=== PATIENT | male | born 1990 | race Two or more races ===

== ENCOUNTER 2016-12-17 | Emergency (ER) | payer MEDICAID | END 2016-12-17 12:49 | disposition home or self-care (01) ==

== ENCOUNTER 2017-04-16 16:57 | Emergency (ER) | payer MEDICAID ==
[2017-04-16 17:23] VITALS: BP 136/75
--- NOTE | 2017-04-16 17:30 | ED Physician Documentation ---
PD HPI LOWER EXT INJURY - Stated complaint Stated Complaint: R FOOT INJ - Chief complaint Chief Complaint: Ext Problem - History obtained from History obtained from: Patient - History of Present Illness PD HPI LOW EXT INJURY LOCATION: Right, Foot (heel) Type of injury: Fall (was going up ladder that kicked out and he fell several feet, landing directly onto right heel, with pain at bottom of heel. No pain at knee, hip nor back.) Where injury occurred: Home Timing - onset: Today Timing - details: Abrupt onset, Still present Worsened by: Palpating, Other (standing/putting weight) Associated symptoms: Swelling (some on bottom of heel). No: Weakness, Numbness Similar symptoms before: Has not had sx before Recently seen: Not recently seen Review of Systems Skin: denies: Abrasion (s), Laceration (s) Musculoskeletal: denies: Neck pain, Back pain Neurologic: denies: Focal weakness, Numbness PD PAST MEDICAL HISTORY - Past Medical History Musculoskeletal: None - Past Surgical History Past Surgical History: No - Present Medications Home Medications: Ambulatory Orders Medication Instructions Recorded Confirmed No Known Home Medications [No 04/16/17 04/16/17 Known Home Medications] - Allergies Allergies/Adverse Reactions: Allergies Allergy/AdvReac Type Severity Reaction Status Date / Time acetaminophen [From Percocet] AdvReac Nausea Verified 04/16/17 17:10 oxycodone HCl * AdvReac Nausea Verified 04/16/17 17:10 [From Percocet] - Social History Does the pt smoke?: No Smoking Status: Never smoker Does the pt drink ETOH?: Yes Does the pt have substance abuse?: No - Immunizations Immunizations are current?: Yes - POLST Patient has POLST: No PD ED PE NORMAL - Vitals Vital signs reviewed: Yes - General General: Alert and oriented X 3, Well developed/nourished - Back Back: No spinal TTP - Derm Derm: Normal color, Warm and dry - Extremities Extremities: Other (right ankle not tender. Heel with tenderness plantar aspect. Toes and MTP area not tender. Good sensation, color and cap refill in toes. ) Results - Vitals Vitals: Vital Signs - 24 hr 04/16/17 17:07 Temperature 37.0 C Heart Rate 87 Respiratory 16 Rate Blood Pressure 136/75 H O2 Saturation 99 Oxygen O2 Source Room air - Rads (name of study) foot and ankle Radiology: Prelim report reviewed (no fractures), EMP read contemporaneously ( no fracture and Bohler's angle appears normal. ) PD MEDICAL DECISION MAKING - ED course Complexity details: reviewed results, considered differential, d/w patient Departure - Departure Disposition: 01 Home, Self Care Clinical Impression: Contusion of right heel Qualifiers: Encounter type: initial encounter Qualified Code(s): S90.31XA - Contusion of right foot, initial encounter Condition: Stable Record reviewed to determine appropriate education?: Yes Instructions: ED Contusion Foot Follow-Up: Guillaume Garcia MD [Provider Admit Priv/Credential] - Comments: Thomas wrap, elevate, ice for swelling. Crutches to be off it until feeling better and progress weight bearing as able. Ibuprofen 3 times daily. Add Tylenol or hydrocodone as needed. Recheck if not better over the next week. Discharge Date/Time: 04/16/17 18:39
[2017-04-16] MEDS ORDERED: IBUPROFEN 600 MG TABLET PO STA (17:54)
[2017-04-16] MEDS ORDERED: traMADol 50 MG TABLET PO STA (17:55)
[2017-04-16] MEDS ORDERED: traMADol 50 MG TABLET PO ONE (18:02)
[2017-04-16] MEDS ORDERED: IBUPROFEN 600 MG TABLET PO ONE (18:02)
--- NOTE | 2017-04-16 18:04 | XRAY Preliminary Report ---
Exam: XR Ankle 3 View RT IMPRESSION: Normal ankle radiography. [facility] SITE ID: [id number]
--- NOTE | 2017-04-16 18:05 | XRAY Preliminary Report ---
Exam: XR Foot 3 View RT IMPRESSION: Normal foot radiography. [facility] SITE ID: [id number]
--- NOTE | 2017-04-16 18:06 | XRAY Report ---
EXAM: RIGHT ANKLE RADIOGRAPHY EXAM DATE: 04/16/2017 05:44 PM. CLINICAL HISTORY: Fall 10 from ladder. COMPARISON: None. TECHNIQUE: 3 views. FINDINGS: Bones: Normal. No fractures or bone lesions. Joints: Normal. No effusion. No subluxations. The ankle mortise is normally aligned. Soft Tissues: Normal. No soft tissue swelling. IMPRESSION: Normal ankle radiography. [facility] Referring Provider Line: [phone] SITE ID: [id number]
--- NOTE | 2017-04-16 18:07 | XRAY Report ---
EXAM: RIGHT FOOT RADIOGRAPHY EXAM DATE: 04/16/2017 05:44 PM. CLINICAL HISTORY: Fall 10 from ladder. COMPARISON: None. TECHNIQUE: 3 views. FINDINGS: Bones: Normal. No fractures or bone lesions. Joints: Normal. No subluxations. Soft Tissues: Normal. No soft tissue swelling. IMPRESSION: Normal foot radiography. [facility] Referring Provider Line: [phone] SITE ID: [id number]
[2017-04-16] MEDS ORDERED: HYDROcod/ACET 5/325 Prepack 6 PO ONE ×2 (18:19→18:34)
== END 2017-04-16 18:39 | disposition home or self-care (01) ==
LOC: ED 16:57
DX: S90.31XA Contusion of right foot, initial encounter (principal); W11.XXXA Fall on and from ladder, initial encounter; Y92.009 Unspecified place in unspecified non-institutional (private) residence as the place of occurrence of the external cause
CPT/HCPCS: 73610; 73630; 99283; A9270

== ENCOUNTER 2017-04-21 09:18 | Outpatient (CLI) | payer MEDICAID | END 2017-04-21 09:19 | disposition EMS.NT | LOC: EMS 09:18 | PROVIDERS: ATTEND Surgery | DX: R07.9 Chest pain, unspecified (principal) ==

== ENCOUNTER 2017-04-21 10:29 | Emergency (ER) | payer MEDICAID ==
--- NOTE | 2017-04-21 10:56 | ED Physician Documentation ---
History of Present Illness - Stated complaint Stated Complaint: CHEST PAIN,PRESSURE - Chief complaint Chief Complaint: Cardiac - Additonal information Additional information: hx from pt 26 y/o male left sided CP today some cough no fever worse laying down better sitting up no abd pain no leg pain or swelling - recent fall and foot injury but no fx and no splint or boot no recent travel or sick contacts Review of Systems Constitutional: denies: Fever Cardiac: reports: Chest pain / pressure Respiratory: reports: Cough GI: denies: Abdominal Pain Musculoskeletal: denies: Extremity pain, Extremity swelling Endocrine: denies: Easy bruising / bleeding Immunocompromised: denies: Immunocompromised PD PAST MEDICAL HISTORY - Past Medical History Musculoskeletal: None - Past Surgical History Past Surgical History: No - Present Medications Home Medications: Ambulatory Orders Medication Instructions Recorded Confirmed Indomethacin [Indocin] 25 mg PO TIDWM PRN #20 capsule 04/21/17 - Allergies Allergies/Adverse Reactions: Allergies Allergy/AdvReac Type Severity Reaction Status Date / Time acetaminophen [From Percocet] AdvReac Nausea Verified 04/16/17 17:10 oxycodone HCl * AdvReac Nausea Verified 04/16/17 17:10 [From Percocet] - Social History Does the pt smoke?: Yes Smoking Status: Light tobacco smoker Does the pt drink ETOH?: Yes Does the pt have substance abuse?: No - Immunizations Immunizations are current?: Yes - POLST Patient has POLST: No PD ED PE NORMAL - Vitals Vital signs reviewed: Yes - Neck Neck: Supple, no meningeal sign - Cardiac Cardiac: RRR - Respiratory Respiratory: No respiratory distress, Other (slightly dec L base) - Abdomen Abdomen: Soft, Non tender Results - Vitals Vitals: Vital Signs - 24 hr 04/21/17 04/21/17 10:35 11:42 Heart Rate 69 59 L Respiratory 17 16 Rate Blood Pressure 118/80 111/83 H O2 Saturation 97 98 Oxygen O2 Source Room air - EKG (time done) 1036 Rate: Rate (enter#) (58) Rhythm: NSR [place]: Normal Intervals: Normal [place] QRS: Normal Ischemia: ST elevation c/w repol - Rads (name of study) CXR Radiology: See rad report (neg, tight narrow mediastinum, no cap or effusion) PD MEDICAL DECISION MAKING - ED course ED course: neg EKG neg CXR neg PERC pain seems pleuritic with a cough, or could be pericarditis since better leaning forward (but no apparent effusion on ECX and no EKG changes) will reassure and dc on NSAID Departure - Departure Disposition: 01 Home, Self Care Clinical Impression: Pleurisy Condition: Good Instructions: ED Chest Pain Atypical Unkn Cause, ED Chest Pain Pleurisy, ED Chest Pain Pericarditis Prescriptions: Indomethacin [Indocin] 25 mg PO TIDWM PRN #20 capsule PRN Reason: Pain Comments: Your EKG and chest xray were fine. Based on your exam, xray and EKG it does not seem you are having a heart attack , a blood clot in your lung, an aneurysm or tear of your aorta, or a collapsed lung Since you have had a but of a cough the pain could be due to inflammation of the lining of your lungs called pleurisy And since you feel better sitting up, the pain could be due to inflammation of the lining of your heart called pericarditis Either one if these will get better on its own and I have prescribed an anit- inflammatory called indocin to help decrease the pain Please follow up with your PDM for a recheck Monday And return to the ER if your symptoms change or worsen over the weekend Forms: Activity restrictions
--- NOTE | 2017-04-21 11:45 | XRAY Preliminary Report ---
Exam: XR Chest 2 View PA/LAT IMPRESSION: Normal 2-view chest radiography. [facility] SITE ID: [id number]
--- NOTE | 2017-04-21 11:46 | XRAY Report ---
EXAM: CHEST RADIOGRAPHY EXAM DATE: 04/21/2017 10:56 AM. CLINICAL HISTORY: Left chest pain for 4 days, worse today. COMPARISON: None. TECHNIQUE: 2 views. FINDINGS: Lungs/Pleura: No focal opacities evident. No pleural effusion. No pneumothorax. Normal volumes. Mediastinum: Heart and mediastinal contours are unremarkable. Other: None. IMPRESSION: Normal 2-view chest radiography. [facility] Referring Provider Line: [phone] SITE ID: [id number]
[2017-04-21 12:48] VITALS: BP 110/53
== END 2017-04-21 12:48 | disposition home or self-care (01) ==
LOC: ED 10:29
DX: R09.1 Pleurisy (principal); F17.200 Nicotine dependence, unspecified, uncomplicated
CPT/HCPCS: 71020; 93005; 93010; 99283; 99284

== ENCOUNTER 2017-10-18 17:04 | Emergency (ER) | payer MEDICAID ==
--- NOTE | 2017-10-18 18:08 | XRAY Preliminary Report ---
Exam: XR CHEST 2 VIEW PA/LAT IMPRESSION: Normal 2-view chest radiography. [facility] SITE ID: [id number]
--- NOTE | 2017-10-18 18:27 | XRAY Report ---
EXAM: CHEST RADIOGRAPHY EXAM DATE: 10/18/2017 05:36 PM. CLINICAL HISTORY: Chest pain. Fall 3 days ago. COMPARISON: 04/21/2017. TECHNIQUE: 2 views. FINDINGS: Lungs/Pleura: No focal opacities evident. No pleural effusion. No pneumothorax. Normal volumes. Mediastinum: Heart and mediastinal contours are unremarkable. Other: None. IMPRESSION: Normal 2-view chest radiography. [facility] Referring Provider Line: [phone] SITE ID: [id number]
--- NOTE | 2017-10-18 18:53 | ED Physician Documentation ---
History of Present Illness - Stated complaint Stated Complaint: CHEST PX - Chief complaint Chief Complaint: General - History obtained from History obtained from: Patient (pt is here with right sided chest pain. states that he fell while skateboarding on monday and hurt his right shoulder. he states that since then he has had right sided chest pain. No problems breathing but does have pain with deep inspiration. no fevers, currently does not have right shoulder pain.) Review of Systems Constitutional: denies: Fever, Chills Eyes: denies: Loss of vision Throat: denies: Dental pain / toothache, Sore throat Cardiac: reports: Chest pain / pressure. denies: Palpitations, Pedal edema Respiratory: denies: Dyspnea, Cough, Hemoptysis, Wheezing GI: denies: Abdominal Pain, Nausea, Vomiting, Constipation, Diarrhea : denies: Dysuria Skin: denies: Rash, Lesions, Laceration (s) Musculoskeletal: denies: Neck pain, Back pain, Extremity pain, Joint pain, Extremity swelling, Joint swelling Neurologic: denies: Headache, Head injury, LOC PD PAST MEDICAL HISTORY - Past Medical History Musculoskeletal: None - Past Surgical History Past Surgical History: No - Present Medications Home Medications: Ambulatory Orders Medication Instructions Recorded Confirmed HYDROcod/ACETAM 5/325 [Heth 5/325] 1 each PO Q6H #10 tablet 10/18/17 - Allergies Allergies/Adverse Reactions: Allergies Allergy/AdvReac Type Severity Reaction Status Date / Time No Known Drug Allergies Allergy Verified 10/18/17 17:17 - Social History Does the pt smoke?: Yes Smoking Status: Current every day smoker Does the pt drink ETOH?: Yes Does the pt have substance abuse?: No - Immunizations Immunizations are current?: Yes - POLST Patient has POLST: No PD ED PE NORMAL - Vitals Vital signs reviewed: Yes - General General: Alert and oriented X 3, Well developed/nourished - HEENT HEENT: Atraumatic, PERRL - Neck Neck: Supple, no meningeal sign, No bony TTP - Cardiac Cardiac: RRR, No murmur, No gallop, Other (+ TTP anterior right sided chest wall , ) - Respiratory Respiratory: No respiratory distress, Clear bilaterally - Abdomen Abdomen: Soft - Back Back: No spinal TTP - Derm Derm: Normal color, Warm and dry, No rash - Extremities Extremities: No deformity, No tenderness to palpate, Normal ROM s pain (right shoulder), Other - Neuro Neuro: Alert and oriented X 3, Normal speech Eye Opening: Spontaneous Motor: Obeys Commands Verbal: Oriented GCS Score: 15 - Psych Psych: Normal mood, Normal affect Results - Vitals Vitals: Vital Signs - 24 hr 10/18/17 17:11 Temperature 36.7 C Heart Rate 62 Respiratory 16 Rate Blood Pressure 121/88 H O2 Saturation 100 Oxygen O2 Source Room air - EKG (time done) 1713 Rate: Rate (enter#) Rhythm: NSR [place]: Normal Intervals: QRS normal QRS: Normal Ischemia: Normal ST segments - Rads (name of study) CXR Radiology: Final report received PD MEDICAL DECISION MAKING - ED course Complexity details: d/w patient ED course: pt with right sided chest wall pain, CXR and ECG unremarkable. has no shoulder pain. has pinpoint pain anterior chest wall which may be a fractured rib that is not seen on the CXR. discussed this with the pt. we discussed return precautions he expressed understanding. Departure - Departure Disposition: 01 Home, Self Care Clinical Impression: Chest wall pain Condition: Good Instructions: ED Contusion Chest Wall Follow-Up: primary, care provider [Other] Prescriptions: HYDROcod/ACETAM 5/325 [Heth 5/325] 1 each PO Q6H #10 tablet Comments: Follow up with your primary care provider. Return to the ER for any new or worsening symptoms.
[2017-10-18 19:05] VITALS: BP 124/74
== END 2017-10-18 19:04 | disposition home or self-care (01) ==
LOC: ED 17:04
DX: R07.89 Other chest pain (principal); F17.200 Nicotine dependence, unspecified, uncomplicated
CPT/HCPCS: 71020; 93005; 99283

== ENCOUNTER 2018-05-27 14:29 | Emergency (ER) | payer MEDICAID ==
[2018-05-27] MEDS ORDERED: LIDOCAINE VISCOUS 2% 15 ML UDC MM STA ×2 (16:33→18:06)
[2018-05-27] MEDS ORDERED: SODIUM CHLORIDE 0.9% 1,000 ML IV ONE (16:33)
--- NOTE | 2018-05-27 16:37 | ED Physician Documentation ---
PD HPI HEENT FB - Chief complaint Chief Complaint: Heent - History obtained from History obtained from: Patient, Family - History of Present Illness Timing - onset: Other (The last 2 days he has had increasing pain that started on the tongue and they noticed a coating on the tongue and it is since moved to the top of the mouth and the bottom of the mouth. He is having a lot of difficulty swallowing or taking any oral intake. Started having fevers and vomiting today. Prior to that he notes no night sweats but he has had a 15 pound weight loss over the last 6 months or so that was unintentional.) Review of Systems Ten Systems: 10 systems reviewed and negative Constitutional: reports: Fever, Chills, Fatigue Nose: denies: Rhinorrhea / runny nose, Congestion Throat: reports: Sore throat Respiratory: denies: Dyspnea GI: reports: Nausea, Vomiting. denies: Abdominal Pain, Diarrhea PD PAST MEDICAL HISTORY - Past Medical History Musculoskeletal: None - Past Surgical History Past Surgical History: No - Present Medications Home Medications: Ambulatory Orders Medication Instructions Recorded Confirmed No Known Home Medications [No 05/27/18 05/27/18 Known Home Medications] - Allergies Allergies/Adverse Reactions: Allergies Allergy/AdvReac Type Severity Reaction Status Date / Time No Known Drug Allergies Allergy Verified 10/18/17 17:17 - Social History Does the pt smoke?: Yes Smoking Status: Current every day smoker Does the pt drink ETOH?: Yes Does the pt have substance abuse?: No - Immunizations Immunizations are current?: Yes - POLST Patient has POLST: No PD ED PE NORMAL - Vitals Vital signs reviewed: Yes - General General: Alert and oriented X 3, No acute distress - HEENT HEENT: PERRL, EOMI, Other (He has a thick white coating on the tongue with spots on the soft palate and buccal mucosa most consistent with thrush. He has no cervical adenopathy or other adenopathy. The neck is supple. The posterior oropharynx looks okay.) - Neck Neck: Supple, no meningeal sign, No bony TTP - Cardiac Cardiac: RRR, No murmur - Respiratory Respiratory: Other (Diminished at both bases, left worse than right) - Abdomen Abdomen: Soft, Non tender - Derm Derm: No rash - Neuro Neuro: Alert and oriented X 3, Normal speech - Psych Psych: Normal mood, Normal affect Results - Vitals Vitals: Vital Signs - 24 hr 05/27/18 15:09 Temperature 38.0 C H Heart Rate 103 H Respiratory 20 Rate Blood Pressure 132/86 H O2 Saturation 99 Oxygen O2 Source Room air - Labs Labs: Microbiology 05/27/18 16:30 TYRELL Preparation - Final Other - Other Laboratory Tests 05/27/18 05/27/18 16:42 16:42 WBC 8.3 RBC 4.41 L Hgb 14.1 Hct 40.4 L MCV 91.6 MCH 31.9 H MCHC 34.8 RDW 12.6 Plt Count 229 MPV 7.4 Neut # (Auto) 6.2 Lymph # (Auto) 1.1 L Bryan # (Auto) 1.0 Eos # (Auto) 0.0 Baso # (Auto) 0.0 Absolute Nucleated RBC 0.00 Nucleated RBC % 0.0 Sodium 134 L Potassium 3.6 Chloride 98 L Carbon Dioxide 25 Anion Gap 11.0 BUN 13 Creatinine 0.8 Estimated GFR (MDRD) 117 Glucose 98 Calcium 9.2 Total Bilirubin 0.7 AST 21 ALT 15 Alkaline Phosphatase 44 Total Protein 7.8 Albumin 4.1 Globulin 3.7 Albumin/Globulin Ratio 1.1 Lipase 27 - Rads (name of study) 2v chest Radiology: EMP read contemporaneously (normal) PD MEDICAL DECISION MAKING - ED course ED course: 27-year-old gentleman presents with acute mouth pain with the severe lesions inside of his mouth, he had a lot of relief with lidocaine and IV fluids. I did a wet mount/TYRELL and no yeast were seen so it does not seem like thrush, primary herpetic gingivostomatitis is more likely at this juncture. Given the severity of it and his recent weight loss he also was tested for HIV and basic blood work was done. I will call him of his HIV or herpes tests are positive at [phone] which is the number he gave me. - Sepsis Event Vital Signs: Vital Signs - 24 hr 05/27/18 15:09 Temperature 38.0 C H Heart Rate 103 H Respiratory 20 Rate Blood Pressure 132/86 H O2 Saturation 99 Oxygen O2 Source Room air Departure - Departure Disposition: 01 Home, Self Care Clinical Impression: Gingivostomatitis, Dehydration Condition: Good Record reviewed to determine appropriate education?: Yes Instructions: ED Dehydration Comments: Help with your doctor in 3 days if not better, return if worse. He was given a prescription for "magic mouthwash, 1-1-1 viscous lidocaine, Maalox, and nystatin suspension 5 mL p.o. swish and spit 4 times a day as needed for mouth pain.
[2018-05-27 16:49] LABS: BASOPHILS % (AUTO) 0.5 %; EOSINOPHILS % (AUTO) 0.6 %; HGB - HEMOGLOBIN 14.1 g/dL (14.0-18.0); LYMPHOCYTES # (AUTO) 1.1 10^3/uL (1.5-3.5); MEAN CORPUSCULAR HEMOGLOBIN 31.9 pg (27.0-31.0); MEAN CORPUSCULAR HGB CONC 34.8 g/dL (32.0-36.0); MEAN CORPUSCULAR VOLUME 91.6 fL (80.0-94.0); MEAN PLATELET VOLUME 7.4 fL (7.4-11.4); MONOCYTES % (AUTO) 11.7 %; NEUTROPHILS # (AUTO) 6.2 10^3/uL (1.5-6.6); NEUTROPHILS % (AUTO) 74.2 %; PLT - PLATELET COUNT 229 10^3/uL (130-450); RED BLOOD COUNT 4.41 10^6/uL (4.70-6.10); RED CELL DISTRIBUTION WIDTH 12.6 % (12.0-15.0); WHITE BLOOD COUNT 8.3 x10^3/uL (4.8-10.8)
[2018-05-27 17:00] LABS: ALBUMIN 4.1 g/dL (3.2-5.5); ALBUMIN/GLOBULIN RATIO 1.1 (1.0-2.2); BILIRUBIN,TOTAL 0.7 mg/dL (0.2-1.0); CALCIUM 9.2 mg/dL (8.5-10.3); CREATININE 0.8 mg/dL (0.6-1.2); TOTAL PROTEIN 7.8 g/dL (6.7-8.2)
--- NOTE | 2018-05-27 17:14 | XRAY Report ---
Procedure Date: 05/27/2018 Accession Number: [id number] / [id number] Procedure: XR - Chest 2 View X-Ray CPT Code: 38829 FULL RESULT: EXAM: CHEST RADIOGRAPHY EXAM DATE: 05/27/2018 04:50 PM. CLINICAL HISTORY: Weight loss. COMPARISON: 10/18/2017. TECHNIQUE: 2 views. FINDINGS: Lungs/Pleura: No focal opacities evident. No pleural effusion. No pneumothorax. Normal volumes. Mediastinum: Heart and mediastinal contours are unremarkable. Other: None. IMPRESSION: Normal 2-view chest radiography. [facility]
[2018-05-27] MEDS ORDERED: HYDROcod/ACET 5/325 Prepack 4 PO STA (17:32)
[2018-05-27 17:41] VITALS: BP 121/80
== END 2018-05-27 18:09 | disposition home or self-care (01) ==
LOC: ED 14:29
DX: K05.10 Chronic gingivitis, plaque induced (principal); E86.0 Dehydration; F17.200 Nicotine dependence, unspecified, uncomplicated
CPT/HCPCS: 36415; 71046; 80053; 83690; 85025; 87210; 87220; 87389; 87529; 96360; 99283

== ENCOUNTER 2019-11-29 10:33 | Outpatient (CLI) | payer MEDICAID | END 2019-11-29 10:34 | disposition EMS.NT | LOC: EMS 10:33 | PROVIDERS: ATTEND Surgery | DX: Z04.1 Encounter for examination and observation following transport accident (principal) ==

== ENCOUNTER 2021-02-21 22:09 | Emergency (ER) | payer MEDICAID ==
[2021-02-21] MEDS ORDERED: diphenhydrAMINE INJ 50 MG/ML VIAL IVP STA (22:42)
[2021-02-21] MEDS ORDERED: SODIUM CHLORIDE 0.9% 1,000 ML IV STA (22:42)
[2021-02-21] MEDS ORDERED: KETOROLAC 30 MG/ML VIAL IVP STA (22:42)
[2021-02-21] MEDS ORDERED: PROCHLORPERAZINE 10 MG/2 ML VIAL IVP STA (22:43)
[2021-02-21] MEDS ORDERED: DEXAMETHASONE 10 MG/ML VIAL IVP STA (22:43)
--- NOTE | 2021-02-21 22:45 | ED Physician Documentation ---
PD HPI HEADACHE - Stated complaint Stated Complaint: MIGRANE - Chief complaint Chief Complaint: Neuro - History obtained from History obtained from: Patient - History of Present Illness Timing - onset: How many days ago (3) Timing - onset during: Rest Timing - duration: Days (3) Timing - details: Gradual onset, Still present Location: Front, Right Quality: Throbbing Associated symptoms: Other (fatigue). No: Fever, Stiff neck, Nausea, Vomiting, Weakness, Numbness, Syncope, Seizure, Eye pain, Vision changes Improved by: Rest Contributing factors: No: Anticoagulated Similar symptoms before: No diagnosis (has headaches usually better with aleve) Recently seen: Not recently seen - Additional information Additional information: 30-year-old male who is been on Suboxone for about 6 months has now developed a headache with fatigue. He states that when he for started the Suboxone he did get headaches periodically and he has not had headaches for some time. He states that he usually has improvement in his headaches with the use of Aleve or ibuprofen. He has not had relief with this. He denies any cough or fever denies any ear pain or muffled hearing. He states the pain is on the right side of his head with some throbbing. He has not had nausea or vomiting. Review of Systems Constitutional: reports: Fatigue. denies: Fever, Chills, Myalgias Eyes: denies: Decreased vision Ears: denies: Loss of hearing, Ear pain Nose: denies: Rhinorrhea / runny nose, Congestion Throat: denies: Sore throat Cardiac: denies: Chest pain / pressure, Palpitations Respiratory: denies: Dyspnea, Cough GI: denies: Abdominal Pain, Nausea, Vomiting, Constipation, Diarrhea : denies: Dysuria, Frequency Skin: denies: Rash Musculoskeletal: denies: Neck pain, Back pain, Extremity pain Neurologic: reports: Headache. denies: Generalized weakness, Focal weakness, Numbness, Difficulty speaking, Syncope, Seizure, Confused, Altered mental status, Head injury, LOC PD PAST MEDICAL HISTORY - Past Medical History Past Medical History: No Musculoskeletal: None - Past Surgical History Past Surgical History: No - Present Medications Home Medications: Ambulatory Orders Medication Instructions Recorded Confirmed Amox/Clav 875/125 [Augmentin] 1 each PO Q12H #20 tablet 02/21/21 Buprenorphine HCl/Naloxone HCl 1 each SL BID 02/21/21 02/21/21 [Suboxone 8 mg-2 mg Sl Film] cloNIDine [Catapres] 0.1 mg PO ONCE 02/21/21 02/21/21 - Allergies Allergies/Adverse Reactions: Allergies Allergy/AdvReac Type Severity Reaction Status Date / Time No Known Drug Allergies Allergy Verified 10/18/17 17:17 - Social History Does the pt smoke?: No Smoking Status: Never smoker Does the pt drink ETOH?: Yes Does the pt have substance abuse?: No - Immunizations Immunizations are current?: Yes - POLST Patient has POLST: No PD ED PE NORMAL - Vitals Vital signs reviewed: Yes (Hypertensive) - General General: Alert and oriented X 3, No acute distress, Well developed/nourished - HEENT HEENT: Atraumatic, PERRL, EOMI, Other (Both TMs are erythematous with flattening of the landmarks.Pharynx is with dry mucous membranes and generalized erythema) - Neck Neck: Supple, no meningeal sign, No bony TTP - Cardiac Cardiac: RRR, No murmur - Respiratory Respiratory: No respiratory distress, Clear bilaterally - Abdomen Abdomen: Soft, Non tender - Back Back: No CVA TTP, No spinal TTP - Derm Derm: Normal color, Warm and dry, No rash - Extremities Extremities: No deformity, No edema - Neuro Neuro: Alert and oriented X 3, attending urologist 2-12 intact, No motor deficit, No sensory deficit, Normal speech Eye Opening: Spontaneous Motor: Obeys Commands Verbal: Oriented GCS Score: 15 - Psych Psych: Normal mood, Normal affect Results - Vitals Vitals: Vital Signs - 24 hr 02/21/21 02/21/21 22:14 22:26 Temperature 37.0 C 37 C Heart Rate 99 99 Respiratory 18 18 Rate Blood Pressure 135/104 H 135/104 H O2 Saturation 99 99 Oxygen O2 Source Room air Procedures - IVC sono (time) 2240 Bedside IVC sono: IVC measures (cm) (1.44), Euvolemia PD MEDICAL DECISION MAKING - ED course Complexity details: reviewed results, re-evaluated patient, considered differential, d/w patient ED course: 30-year-old male on Suboxone is developed a headache with right hemicrania pre sent for 3 days not responding to his usual remedies. He is found to have otitis on examination and has no symptoms. With the exception of the headache. He is treated for migraine with saline Compazine Benadryl Decadron and Toradol. Departure - Departure Disposition: 01 Home, Self Care Clinical Impression: Headache Qualifiers: Headache type: unspecified Headache chronicity pattern: acute headache Intractability: not intractable Qualified Code(s): R51.9 - Headache, unspecified Otitis media Qualifiers: Otitis media type: suppurative Chronicity: acute Laterality: bilateral Recurrence: not specified as recurrent Spontaneous tympanic membrane rupture: without spontaneous rupture Qualified Code(s): H66.003 - Acute suppurative otitis media without spontaneous rupture of ear drum, bilateral Condition: Stable Instructions: ED Ear Infec Wait See Abx Tx Ch, ED Cephalgia Unspecified Follow-Up: [facility] [Provider Group] Prescriptions: Amox/Clav 875/125 [Augmentin] 1 each PO Q12H #20 tablet
--- OUTSIDE RECORDS SUMMARY | 2021-02-21 23:24 | EXTERNAL MEDICAL SUMMARY RPT | Continuity of Care Document ---
:1990 Demographics Phone Unavailable Preferred Language Unknown Marital Status Unknown Caodaism Affiliation Unknown Race Unknown Ethnic Group Unknown Author Organization [facility] Address [address] [phone] Phone Social History date description facility [id number]
[2021-02-22 00:02] VITALS: BP 118/99
== END 2021-02-22 00:06 | disposition home or self-care (01) ==
LOC: ED 22:09
DX: R51.9 Headache, unspecified (principal); H66.003 Acute suppurative otitis media without spontaneous rupture of ear drum, bilateral
CPT/HCPCS: 96361; 96374; 96375; 99284; 99285; J1200